=== PATIENT | female | born 1995 ===

== ENCOUNTER 2025-01-11 02:24 | Inpatient (IN) | payer BC ==
[2025-01-11] MEDS ORDERED: Sodium Chloride 0.9% 10 ML Syringe FLUSH PRN (03:06)
[2025-01-11] MEDS ORDERED: Butorphanol 1 MG/ML SDV IVPUSH PRN (03:06)
[2025-01-11] MEDS ORDERED: Carboprost Tromethamine 250 MCG/1 mL Vial IM PRN (03:06)
[2025-01-11] MEDS ORDERED: Sodium Chloride 0.9% 2.5 ML Syringe FLUSH PRN (03:06)
[2025-01-11] MEDS ORDERED: Water For Irrigation,Sterile 1,000 ML Container IRR PRN (03:06)
[2025-01-11] MEDS ORDERED: Oxytocin/0.9 % Sodium Chloride 30 UNIT/500 ML BAG ONE (03:14)
[2025-01-11] MEDS: Lactated Ringers 1,000 ML IV SCH (03:27)
[2025-01-11 03:48] LABS: MEAN PLATELET VOLUME 11.1 fL (9.4-12.3); NRBC ABSOLUTE 0.00 K/uL (0.00-0.02); NRBC PERCENT 0.0 /100WBC (0.0-0.2); PLATELET COUNT,PLT 213 K/uL (150-400); RED BLOOD CELL COUNT 4.36 M/uL (4.10-5.30); WHITE BLOOD CELL COUNT,WBC 11.73 K/uL (3.9-11.3)
[2025-01-11] MEDS: Oxytocin/0.9 % Sodium Chloride 30 UNIT/500 ML BAG IV SCH ×2 (03:58→07:15)
[2025-01-11 07:50] LABS: BASOPHILS ABSOLUTE AUTO 0.02 K/uL (0.00-0.20); BASOPHILS PERCENT AUTO 0.1 % (0.0-1.0); EOSINOPHILS ABSOLUTE AUTO 0.00 K/uL (0.00-0.45); EOSINOPHILS PERCENT AUTO 0.0 % (0.0-6.0); IMMATURE GRAN ABSOLUTE AUTO 0.09 K/uL (0.00-0.05); IMMATURE GRAN PERCENT AUTO 0.5 % (0.0-0.4); LYMPHOCYTES ABSOLUTE AUTO 0.72 K/uL (1.00-4.80); LYMPHOCYTES PERCENT AUTO 4.4 % (24.0-44.0); MEAN PLATELET VOLUME 10.6 fL (9.4-12.3); MONOCYTES ABSOLUTE AUTO 1.29 K/uL (0.00-0.80); MONOCYTES PERCENT AUTO 7.9 % (0.0-8.0); NEUTROPHILS ABSOLUTE AUTO 14.28 K/uL (1.80-7.70); NEUTROPHILS PERCENT AUTO 87.1 % (41.0-71.0); NRBC ABSOLUTE 0.00 K/uL (0.00-0.02); NRBC PERCENT 0.0 /100WBC (0.0-0.2); PLATELET COUNT,PLT 182 K/uL (150-400); RED BLOOD CELL COUNT 3.68 M/uL (4.10-5.30); WHITE BLOOD CELL COUNT,WBC 16.40 K/uL (3.9-11.3)
[2025-01-11 09:00] LABS: INR 1.0 (0.86-1.11); PTT,PARTIAL THROMBOPLSTIN TIME 33.3 SEC (23.9-30.7)
[2025-01-11] MEDS ORDERED: Lanolin 100% Cream 7 GM Tube TOP PRN (20:24)
[2025-01-11] MEDS: Witch Hazel Medicated Pads 40/Jar TOP PRN (20:33)
[2025-01-11] MEDS: Benzocaine/Menthol 20%-0.5% Spray 78 GM Cannister TOP PRN (20:34)
[2025-01-12] MEDS: Sodium Ferric Gluconate Cmplex 125 MG in Sodium Chloride 0.9% 100 ML IV ONE (10:11)
== END 2025-01-13 14:00 | disposition home or self-care (01) | DRG 560 ==
LOC: MW.OBCHECK 02:24 → MW.OB 03:06 → OBSVTOIN 03:55 → MW.OB 03:55
PROVIDERS: ADMIT Obstetrics & Gynecology; ATTEND Obstetrics & Gynecology Obstetrics
PROC: 10E0XZZ Delivery of Products of Conception, External Approach (ICD-10-PCS; principal; 2025-01-11)
PROC: 0KQM0ZZ Repair Perineum Muscle, Open Approach (ICD-10-PCS; 2025-01-11)
DX: O48.0 Post-term pregnancy (principal); Z3A.40 40 weeks gestation of pregnancy; Z37.0 Single live birth; O72.1 Other immediate postpartum hemorrhage; O99.824 Streptococcus B carrier state complicating childbirth; O70.1 Second degree perineal laceration during delivery; O69.1XX0 Labor and delivery complicated by cord around neck, with compression, not applicable or unspecified; O42.02 Full-term premature rupture of membranes, onset of labor within 24 hours of rupture
CPT/HCPCS: 36415; 59025; 59409; 85014; 85018; 85025; 85027; 85384; 85610; 85730; 86592; 86850; 86900; 86901; A9270-GY; J0290; J2590; J2916; J7120